=== PATIENT | male | born 1945 | race Caucasian/White ===

== ENCOUNTER → 2017-11-20 | Outpatient (CLI) | payer MEDICARE, OTHER ==
[~2017-11-20] MED LIST: ARMOUR THYROID60 M1; BAYER CHEWABLE81 MG PO; LEVOTHYROXIN0.025 MG PO; LEVOTHYROXINE 0.1 MG PO; LIPITOR10 MG PO; MEDROLDOSEPACK PO; NICOTINE TRANSD21 M1 TD; PLAVIX 75 MG TA75 M1 PO; PLAVIX 75 MG TA75 MG PO; PROAIR HFA8.5 GM INH; TYLENOL325 MG PO
== END ==
LOC: M.CT 10:34
DX: D49.0 Neoplasm of unspecified behavior of digestive system (principal); K76.0 Fatty (change of) liver, not elsewhere classified; K56.609 Unspecified intestinal obstruction, unspecified as to partial versus complete obstruction; R19.09 Other intra-abdominal and pelvic swelling, mass and lump; R91.1 Solitary pulmonary nodule

== ENCOUNTER → 2018-09-21 | Outpatient (CLI) | payer MEDICARE, OTHER | LOC: M.ULTRA 10:22 | DX: I65.23 Occlusion and stenosis of bilateral carotid arteries (principal); I70.90 Unspecified atherosclerosis; Z86.73 Personal history of transient ischemic attack (TIA), and cerebral infarction without residual deficits ==